=== PATIENT | male | born 1980 | race Hispanic/Latino ===

== ENCOUNTER 2018-04-20 15:28 | Outpatient (CLI) | payer OTHER ==
--- NOTE | 2018-04-21 10:35 | MRI ---
MRI OF THE LEFT WRIST WITHOUT CONTRAST: Date: 04/20/18 INDICATION: History of left wrist sprain after fall. COMPARISON: None. TECHNIQUE: Multiplanar, multisequence MR images were obtained of the left wrist without IV contrast. Motion taylor fact heavily limits image detail. FINDINGS: Visualized aspect of the scapholunate and lunotriquetral ligament appear intact. The TFC appears inta ct. The radial ulnar ligaments appear intact. The extrinsic ligaments are slightly difficult to evalu ate due to motion but appear grossly intact. Carpal alignment appears within normal limits. No defini te acute fracture is evident. Carpal tunnel and its contents appear within normal limits. The ulnar n eurovasculature appears within normal limits. IMPRESSION: 1. Limitations to exam due to motion artifact. 2. No definite acute abnormality seen. POS: [facility]
== END 2018-04-20 15:29 | disposition home or self-care (01) ==
LOC: TBSIIMAG 15:28
PROVIDERS: ATTEND Family Medicine
DX: S63.502D Unspecified sprain of left wrist, subsequent encounter (principal)

== ENCOUNTER 2021-02-15 13:11 | Inpatient (IN) | payer OTHER, SELFPAY ==
[2021-02-15] MEDS ORDERED: Dexamethasone 4 mg/ml Vial ONE (13:35)
[2021-02-15 13:39] LABS: #Basophils 0.1 thou/uL (0.0-0.2); #Eosinphils 0.2 thou/uL (0.0-0.7); #Monocytes 0.9 thou/uL (0.11-0.59); #Neutrophils 8.7 thou/uL (1.40-6.50); %Basophils 0.8 % (0.0-1.0); %Eosinophils 1.5 % (0.0-10.0); %Lymphocytes 9.3 % (21.0-51.0); %Monocytes 8.5 % (0.0-10.0); Hemoglobin 13.9 g/dL (14.0-18.0); Mean Corpuscular HGB CONC 32.4 g/dL (32.0-36.0); Mean Corpuscular Hemoglobin 30.4 pg (27.0-31.0); Mean Corpuscular Volume 93.8 fL (78.0-98.0); Mean Platelet Volume 8.8 fL (7.4-10.4); Platelet Count 356 thou/uL (130-400); RBC Distribution Width 13.1 % (11.5-14.5); Red Blood Cell (RBC) Count 4.57 mill/uL (4.70-6.10); White Blood Cell (WBC) Count 10.9 thou/uL (4.8-10.8)
[2021-02-15 13:59] LABS: ALT (SGPT) 97 U/L (8-55); AST (SGOT) 44 U/L (5-34); Albumin 3.7 g/dL (3.5-5.0); Alkaline Phosphatase 97 U/L (40-110); Anion Gap 15 mmol/L (10-20); BUN (Urea Nitrogen) 18 mg/dL (8.9-20.6); Bilirubin, Total 1.1 mg/dL (0.2-1.2); Calc. Creatinine Clearance 0 mL/min (70-130); Calcium 8.5 mg/dL (7.8-10.44); Carbon Dioxide 25 mmol/L (22-29); Chloride 93 mmol/L (98-107); Globulin 3.3 g/dL (2.4-3.5); Glucose 126 mg/dL (70-105); Potassium 4.6 mmol/L (3.5-5.1); Sodium 128 mmol/L (136-145)
[2021-02-15] MEDS ORDERED: Enoxaparin Sodium 40 MG/0.4 ML SYRINGE SC SCH (15:00)
[2021-02-15 15:36] LABS: SARS-CoV-2 NAA Rapid Test DETECTED (NotDetected)
[2021-02-15 20:17] VITALS: BMI 37.8
[2021-02-15] MEDS: Cholecalciferol 1,000 UNITS (25 MCG) TAB PO SCH (21:02)
[2021-02-15] MEDS: Thiamine 100 MG TAB PO SCH (21:02)
[2021-02-15] MEDS: Zinc Sulfate 220 MG CAP PO SCH (21:02)
[2021-02-15] MEDS: Ascorbic Acid 500 mg Chewable Tablet PO SCH (21:02)
[2021-02-15] MEDS: traMADol HCl 50 MG TAB PO SCH (21:03)
[2021-02-15] MEDS: Pregabalin 75 MG CAP PO SCH (21:03)
[2021-02-15] MEDS: Sodium Chloride 0.9% 1,000 ML IV SCH (21:04)
[2021-02-15] MEDS: Famotidine/PF 20 mg/2ml Vial SLOW IVP SCH (21:04)
[2021-02-15] MEDS: Famotidine 20 MG TAB PO SCH (21:04)
[2021-02-15] MEDS: Cyclobenzaprine 10 MG TAB PO SCH (21:04)
[2021-02-16] MEDS: Thiamine 100 MG TAB PO SCH (08:06)
[2021-02-16] MEDS: Famotidine 20 MG TAB PO SCH ×2 (08:06→20:11)
[2021-02-16] MEDS: Cholecalciferol 1,000 UNITS (25 MCG) TAB PO SCH (08:06)
[2021-02-16] MEDS: Cyclobenzaprine 10 MG TAB PO SCH ×3 (08:06→20:10)
[2021-02-16] MEDS: Zinc Sulfate 220 MG CAP PO SCH (08:06)
[2021-02-16] MEDS: Ascorbic Acid 500 mg Chewable Tablet PO SCH (08:06)
[2021-02-16] MEDS: Famotidine/PF 20 mg/2ml Vial SLOW IVP SCH (08:06)
[2021-02-16] MEDS: traMADol HCl 50 MG TAB PO SCH ×3 (08:07→20:10)
[2021-02-16] MEDS: Pregabalin 75 MG CAP PO SCH ×2 (08:07→20:09)
[2021-02-16] MEDS: Folic Acid 1 MG TAB PO SCH (08:07)
[2021-02-16] MEDS ORDERED: Enoxaparin Sodium 40 MG/0.4 ML SYRINGE SC SCH (09:00)
[2021-02-16 09:07] LABS: #Lymphocytes 1.1 thou/uL (1.20-3.40); #Monocytes 0.9 thou/uL (0.11-0.59); #Neutrophils 7.5 thou/uL (1.40-6.50); %Basophils 0.1 % (0.0-1.0); %Eosinophils 0.4 % (0.0-10.0); %Lymphocytes 11.5 % (21.0-51.0); %Monocytes 9.4 % (0.0-10.0); %Neutrophils 78.6 % (42.0-75.0); Hemoglobin 12.8 g/dL (14.0-18.0); Mean Corpuscular HGB CONC 32.6 g/dL (32.0-36.0); Mean Corpuscular Hemoglobin 30.8 pg (27.0-31.0); Mean Corpuscular Volume 94.4 fL (78.0-98.0); Mean Platelet Volume 9.4 fL (7.4-10.4); Platelet Count 365 thou/uL (130-400); RBC Distribution Width 13.2 % (11.5-14.5); Red Blood Cell (RBC) Count 4.17 mill/uL (4.70-6.10); White Blood Cell (WBC) Count 9.5 thou/uL (4.8-10.8)
[2021-02-16] MEDS ORDERED: Albuterol Sulfate 2.5 mg/3 ml Neb NEB PRN (09:17)
[2021-02-16 09:26] LABS: ALT (SGPT) 78 U/L (8-55); AST (SGOT) 32 U/L (5-34); Albumin 3.6 g/dL (3.5-5.0); Alkaline Phosphatase 88 U/L (40-110); Anion Gap 13 mmol/L (10-20); BUN (Urea Nitrogen) 19 mg/dL (8.9-20.6); Calc. Creatinine Clearance 242 mL/min (70-130); Calcium 9.1 mg/dL (7.8-10.44); Carbon Dioxide 26 mmol/L (22-29); Chloride 100 mmol/L (98-107); Globulin 3.4 g/dL (2.4-3.5); Glucose 103 mg/dL (70-105); Potassium 4.4 mmol/L (3.5-5.1); Sodium 135 mmol/L (136-145)
[2021-02-16] MEDS: Dexamethasone 10 MG in Sodium Chloride 0.9% 50 ML IVPB SCH (09:50)
[2021-02-16] MEDS: Benzonatate 100 MG CAP PO PRN ×2 (09:50→18:15)
[2021-02-16] MEDS: Sodium Chloride 0.9% 1,000 ML IV SCH ×2 (09:51→20:17)
[2021-02-16] MEDS: Acetaminophen 325 MG TAB PO PRN (10:10)
[2021-02-16] MEDS ORDERED: Iopamidol-370 76% 500 ML 1 ML ONE (10:53)
[2021-02-16] MEDS ORDERED: Ketorolac Tromethamine 30 MG/ML VIAL IVP SCH (14:30)
[2021-02-17] MEDS: Acetaminophen 325 MG TAB PO PRN ×2 (03:42→18:40)
[2021-02-17] MEDS: Benzonatate 100 MG CAP PO PRN ×2 (03:42→18:59)
[2021-02-17] MEDS ORDERED: Ketorolac Tromethamine 30 MG/ML VIAL IVP SCH (04:15)
[2021-02-17 07:52] LABS: #Basophils 0.1 thou/uL (0.0-0.2); #Lymphocytes 1.6 thou/uL (1.20-3.40); #Neutrophils 9.4 thou/uL (1.40-6.50); %Basophils 1.1 % (0.0-1.0); %Eosinophils 0.3 % (0.0-10.0); %Lymphocytes 12.9 % (21.0-51.0); %Monocytes 8.3 % (0.0-10.0); %Neutrophils 77.4 % (42.0-75.0); Hemoglobin 13.4 g/dL (14.0-18.0); Mean Corpuscular HGB CONC 34.9 g/dL (32.0-36.0); Mean Corpuscular Hemoglobin 32.6 pg (27.0-31.0); Mean Corpuscular Volume 93.3 fL (78.0-98.0); Mean Platelet Volume 8.8 fL (7.4-10.4); Platelet Count 361 thou/uL (130-400); Red Blood Cell (RBC) Count 4.12 mill/uL (4.70-6.10); White Blood Cell (WBC) Count 12.2 thou/uL (4.8-10.8)
[2021-02-17 08:13] LABS: ALT (SGPT) 76 U/L (8-55); AST (SGOT) 33 U/L (5-34); Albumin 3.3 g/dL (3.5-5.0); Alkaline Phosphatase 94 U/L (40-110); Anion Gap 12 mmol/L (10-20); BUN (Urea Nitrogen) 18 mg/dL (8.9-20.6); Bilirubin, Total 1.1 mg/dL (0.2-1.2); Calc. Creatinine Clearance 229 mL/min (70-130); Calcium 8.7 mg/dL (7.8-10.44); Carbon Dioxide 26 mmol/L (22-29); Chloride 99 mmol/L (98-107); Globulin 3.4 g/dL (2.4-3.5); Glucose 92 mg/dL (70-105); Potassium 4.4 mmol/L (3.5-5.1); Protein, Total 6.7 g/dL (6.0-8.3); Sodium 133 mmol/L (136-145)
[2021-02-17] MEDS: Famotidine 20 MG TAB PO SCH ×2 (08:24→21:28)
[2021-02-17] MEDS: Cholecalciferol 1,000 UNITS (25 MCG) TAB PO SCH (08:24)
[2021-02-17] MEDS: Folic Acid 1 MG TAB PO SCH (08:24)
[2021-02-17] MEDS: Zinc Sulfate 220 MG CAP PO SCH (08:24)
[2021-02-17] MEDS: Cyclobenzaprine 10 MG TAB PO SCH ×3 (08:24→21:27)
[2021-02-17] MEDS: traMADol HCl 50 MG TAB PO SCH ×3 (08:25→21:28)
[2021-02-17] MEDS: Thiamine 100 MG TAB PO SCH (08:25)
[2021-02-17] MEDS: Pregabalin 75 MG CAP PO SCH ×2 (08:25→21:28)
[2021-02-17] MEDS: Ascorbic Acid 500 mg Chewable Tablet PO SCH (08:26)
[2021-02-17] MEDS: Enoxaparin Sodium 40 MG/0.4 ML SYRINGE SC SCH ×2 (08:26→21:27)
[2021-02-17] MEDS: Dexamethasone 10 MG in Sodium Chloride 0.9% 50 ML IVPB SCH (08:28)
[2021-02-17] MEDS ORDERED: Metoclopramide HCl 10 MG/2 ML VIAL IVP SCH (09:30)
[2021-02-17] MEDS ORDERED: diphenhydrAMINE 50 MG/ML VIAL IVP SCH (09:30)
[2021-02-17] MEDS ORDERED: Sodium Chloride 0.9% 500 ML IV SCH ×3 (09:30→16:30)
[2021-02-17] MEDS ORDERED: Ketorolac Tromethamine 30 MG/ML VIAL IVP PRN (10:00)
[2021-02-17] MEDS: Sodium Chloride 0.9% 1,000 ML IV SCH ×2 (14:56→21:29)
[2021-02-18] MEDS: Benzonatate 100 MG CAP PO PRN ×2 (01:13→20:26)
[2021-02-18] MEDS: Melatonin 3 MG TAB PO PRN ×2 (01:13→20:26)
[2021-02-18] MEDS: Acetaminophen 325 MG TAB PO PRN (01:14)
[2021-02-18 06:26] LABS: ALT (SGPT) 64 U/L (8-55); AST (SGOT) 25 U/L (5-34); Albumin 3.2 g/dL (3.5-5.0); Alkaline Phosphatase 87 U/L (40-110); Anion Gap 9 mmol/L (10-20); BUN (Urea Nitrogen) 14 mg/dL (8.9-20.6); Bilirubin, Total 0.6 mg/dL (0.2-1.2); Calc. Creatinine Clearance 232 mL/min (70-130); Calcium 8.9 mg/dL (7.8-10.44); Carbon Dioxide 25 mmol/L (22-29); Chloride 104 mmol/L (98-107); Globulin 3.3 g/dL (2.4-3.5); Glucose 100 mg/dL (70-105); Potassium 4.4 mmol/L (3.5-5.1); Protein, Total 6.5 g/dL (6.0-8.3); Sodium 134 mmol/L (136-145)
[2021-02-18 06:30] LABS: Mean Corpuscular HGB CONC 32.5 g/dL (32.0-36.0); Mean Corpuscular Hemoglobin 30.7 pg (27.0-31.0); Mean Corpuscular Volume 94.2 fL (78.0-98.0); Mean Platelet Volume 8.9 fL (7.4-10.4); Platelet Count 350 thou/uL (130-400); Red Blood Cell (RBC) Count 3.92 mill/uL (4.70-6.10); White Blood Cell (WBC) Count 11.6 thou/uL (4.8-10.8)
[2021-02-18 08:10] LABS: Band 13 % (5-11); Lymphocytes 8 % (21-51); MDiff Complete? YES; Metamyelocyte 6 % (0-0); Monocytes 15 % (0-10); Myelocyte 2 % (0-0); Neutrophil 56 % (42-75); Platelet Morphology Comment Appears Adequate; Polychromasia SLIGHT = 2-3 cells (100X) (0-2/hpf)
[2021-02-18] MEDS: Cyclobenzaprine 10 MG TAB PO SCH ×3 (08:49→20:27)
[2021-02-18] MEDS: Pregabalin 75 MG CAP PO SCH ×2 (08:50→20:26)
[2021-02-18] MEDS: traMADol HCl 50 MG TAB PO SCH ×3 (08:50→20:27)
[2021-02-18] MEDS: Thiamine 100 MG TAB PO SCH (08:51)
[2021-02-18] MEDS: Enoxaparin Sodium 40 MG/0.4 ML SYRINGE SC SCH ×2 (08:51→20:28)
[2021-02-18] MEDS: Ascorbic Acid 500 mg Chewable Tablet PO SCH (08:51)
[2021-02-18] MEDS: Dexamethasone 4 mg/ml Vial SLOW IVP SCH (08:51)
[2021-02-18] MEDS: Cholecalciferol 1,000 UNITS (25 MCG) TAB PO SCH (08:51)
[2021-02-18] MEDS: Folic Acid 1 MG TAB PO SCH (08:51)
[2021-02-18] MEDS: Famotidine 20 MG TAB PO SCH ×2 (08:51→20:27)
[2021-02-18] MEDS: Zinc Sulfate 220 MG CAP PO SCH (08:51)
[2021-02-18] MEDS ORDERED: Calcium Carbonate 500 MG ChewTAB PO PRN (15:26)
[2021-02-18] MEDS: Sodium Chloride 0.9% 1,000 ML IV SCH (17:12)
[2021-02-19] MEDS: Sodium Chloride 0.9% 1,000 ML IV SCH (06:31)
[2021-02-19] MEDS: Cholecalciferol 1,000 UNITS (25 MCG) TAB PO SCH (07:48)
[2021-02-19] MEDS: Cyclobenzaprine 10 MG TAB PO SCH ×3 (07:48→20:10)
[2021-02-19] MEDS: Zinc Sulfate 220 MG CAP PO SCH (07:48)
[2021-02-19] MEDS: Benzonatate 100 MG CAP PO PRN ×3 (07:49→17:26)
[2021-02-19] MEDS: traMADol HCl 50 MG TAB PO SCH ×3 (07:49→20:10)
[2021-02-19] MEDS: Folic Acid 1 MG TAB PO SCH (07:49)
[2021-02-19] MEDS: Ascorbic Acid 500 mg Chewable Tablet PO SCH (07:49)
[2021-02-19] MEDS: Famotidine 20 MG TAB PO SCH ×2 (07:49→20:11)
[2021-02-19] MEDS: Pregabalin 75 MG CAP PO SCH ×2 (07:49→20:10)
[2021-02-19] MEDS: Dexamethasone 4 mg/ml Vial SLOW IVP SCH (07:50)
[2021-02-19] MEDS: Thiamine 100 MG TAB PO SCH (07:50)
[2021-02-19] MEDS: Enoxaparin Sodium 40 MG/0.4 ML SYRINGE SC SCH ×2 (07:51→20:11)
[2021-02-19] MEDS: Melatonin 3 MG TAB PO PRN (20:11)
[2021-02-20] MEDS: Cholecalciferol 1,000 UNITS (25 MCG) TAB PO SCH (09:58)
[2021-02-20] MEDS: Cyclobenzaprine 10 MG TAB PO SCH ×3 (09:58→20:30)
[2021-02-20] MEDS: Zinc Sulfate 220 MG CAP PO SCH (09:59)
[2021-02-20] MEDS: Ascorbic Acid 500 mg Chewable Tablet PO SCH (09:59)
[2021-02-20] MEDS: Famotidine 20 MG TAB PO SCH ×2 (09:59→20:31)
[2021-02-20] MEDS: Pregabalin 75 MG CAP PO SCH ×2 (09:59→20:30)
[2021-02-20] MEDS: Folic Acid 1 MG TAB PO SCH (09:59)
[2021-02-20] MEDS: Enoxaparin Sodium 40 MG/0.4 ML SYRINGE SC SCH ×2 (10:00→20:31)
[2021-02-20] MEDS: Thiamine 100 MG TAB PO SCH (10:00)
[2021-02-20] MEDS: Dexamethasone 4 mg/ml Vial SLOW IVP SCH (10:00)
[2021-02-20] MEDS: Benzonatate 100 MG CAP PO PRN ×3 (10:00→20:31)
[2021-02-20] MEDS: traMADol HCl 50 MG TAB PO SCH ×3 (10:01→20:31)
[2021-02-20] MEDS: Melatonin 3 MG TAB PO PRN (20:31)
[2021-02-21 06:05] LABS: #Basophils 0.1 thou/uL (0.0-0.2); #Lymphocytes 1.5 thou/uL (1.20-3.40); #Monocytes 1.3 thou/uL (0.11-0.59); %Basophils 0.6 % (0.0-1.0); %Eosinophils 0.4 % (0.0-10.0); %Lymphocytes 12.4 % (21.0-51.0); %Monocytes 11.2 % (0.0-10.0); %Neutrophils 75.5 % (42.0-75.0); Hemoglobin 12.4 g/dL (14.0-18.0); Mean Corpuscular HGB CONC 33.5 g/dL (32.0-36.0); Mean Corpuscular Hemoglobin 31.3 pg (27.0-31.0); Mean Corpuscular Volume 93.5 fL (78.0-98.0); Mean Platelet Volume 8.8 fL (7.4-10.4); Platelet Count 441 thou/uL (130-400); RBC Distribution Width 12.8 % (11.5-14.5); Red Blood Cell (RBC) Count 3.98 mill/uL (4.70-6.10); White Blood Cell (WBC) Count 11.9 thou/uL (4.8-10.8)
[2021-02-21 06:35] LABS: Anion Gap 9 mmol/L (10-20); BUN (Urea Nitrogen) 19 mg/dL (8.9-20.6); CRP (Inflammatory) 3.27 mg/dL (= or < 0.5); Calc. Creatinine Clearance 235 mL/min (70-130); Calcium 9.2 mg/dL (7.8-10.44); Carbon Dioxide 28 mmol/L (22-29); Chloride 101 mmol/L (98-107); Glucose 103 mg/dL (70-105); Potassium 4.2 mmol/L (3.5-5.1); Sodium 134 mmol/L (136-145)
[2021-02-21] MEDS: Cholecalciferol 1,000 UNITS (25 MCG) TAB PO SCH (09:45)
[2021-02-21] MEDS: Thiamine 100 MG TAB PO SCH (09:45)
[2021-02-21] MEDS: Benzonatate 100 MG CAP PO PRN ×3 (09:45→20:45)
[2021-02-21] MEDS: Zinc Sulfate 220 MG CAP PO SCH (09:45)
[2021-02-21] MEDS: Folic Acid 1 MG TAB PO SCH (09:45)
[2021-02-21] MEDS: Cyclobenzaprine 10 MG TAB PO SCH ×3 (09:45→20:44)
[2021-02-21] MEDS: Pregabalin 75 MG CAP PO SCH ×2 (09:45→20:44)
[2021-02-21] MEDS: Dexamethasone 4 mg/ml Vial SLOW IVP SCH ×2 (09:46→20:46)
[2021-02-21] MEDS: Famotidine 20 MG TAB PO SCH ×2 (09:46→20:45)
[2021-02-21] MEDS: Colchicine 0.6 MG TAB PO SCH ×2 (09:46→20:45)
[2021-02-21] MEDS: Ascorbic Acid 500 mg Chewable Tablet PO SCH (09:46)
[2021-02-21] MEDS: Enoxaparin Sodium 40 MG/0.4 ML SYRINGE SC SCH ×2 (09:47→20:46)
[2021-02-21] MEDS: traMADol HCl 50 MG TAB PO SCH ×3 (09:47→20:45)
[2021-02-21] MEDS ORDERED: Sodium Chloride 0.65% Nasal 44 ML BOT EA NARE PRN (12:47)
[2021-02-21] MEDS: Melatonin 3 MG TAB PO PRN (20:46)
[2021-02-22 06:12] LABS: #Lymphocytes 1.3 thou/uL (1.20-3.40); #Monocytes 0.7 thou/uL (0.11-0.59); %Basophils 0.2 % (0.0-1.0); %Eosinophils 0.3 % (0.0-10.0); %Lymphocytes 9.5 % (21.0-51.0); %Monocytes 4.7 % (0.0-10.0); %Neutrophils 85.3 % (42.0-75.0); Hemoglobin 12.6 g/dL (14.0-18.0); Mean Corpuscular HGB CONC 33.9 g/dL (32.0-36.0); Mean Corpuscular Hemoglobin 31.5 pg (27.0-31.0); Mean Corpuscular Volume 92.9 fL (78.0-98.0); Mean Platelet Volume 8.9 fL (7.4-10.4); Platelet Count 450 thou/uL (130-400); RBC Distribution Width 12.9 % (11.5-14.5)
[2021-02-22 06:37] LABS: Anion Gap 11 mmol/L (10-20); BUN (Urea Nitrogen) 17 mg/dL (8.9-20.6); CRP (Inflammatory) 1.37 mg/dL (= or < 0.5); Calc. Creatinine Clearance 256 mL/min (70-130); Calcium 9.2 mg/dL (7.8-10.44); Carbon Dioxide 26 mmol/L (22-29); Chloride 100 mmol/L (98-107); Glucose 130 mg/dL (70-105); Potassium 4.3 mmol/L (3.5-5.1); Sodium 133 mmol/L (136-145)
[2021-02-22] MEDS: Dexamethasone 4 mg/ml Vial SLOW IVP SCH ×2 (09:45→20:52)
[2021-02-22] MEDS: Benzonatate 100 MG CAP PO PRN ×2 (09:45→20:52)
[2021-02-22] MEDS: Cholecalciferol 1,000 UNITS (25 MCG) TAB PO SCH (09:46)
[2021-02-22] MEDS: Pregabalin 75 MG CAP PO SCH ×2 (09:46→20:53)
[2021-02-22] MEDS: Ascorbic Acid 500 mg Chewable Tablet PO SCH (09:46)
[2021-02-22] MEDS: Zinc Sulfate 220 MG CAP PO SCH (09:46)
[2021-02-22] MEDS: Famotidine 20 MG TAB PO SCH ×2 (09:46→20:53)
[2021-02-22] MEDS: Folic Acid 1 MG TAB PO SCH (09:46)
[2021-02-22] MEDS: Thiamine 100 MG TAB PO SCH (09:46)
[2021-02-22] MEDS: traMADol HCl 50 MG TAB PO SCH ×3 (09:47→20:54)
[2021-02-22] MEDS: Cyclobenzaprine 10 MG TAB PO SCH ×3 (09:47→20:52)
[2021-02-22] MEDS: Colchicine 0.6 MG TAB PO SCH ×2 (09:47→20:52)
[2021-02-22] MEDS: Enoxaparin Sodium 40 MG/0.4 ML SYRINGE SC SCH ×2 (09:48→20:51)
[2021-02-22] MEDS ORDERED: ALPRAZolam 0.5 MG TAB PO PRN (17:14)
[2021-02-22 17:42] LABS: Hemoglobin 13.4 g/dL (14.0-18.0)
[2021-02-22] MEDS ORDERED: DULoxetine 60 MG CAP PO SCH (18:30)
[2021-02-22] MEDS: Melatonin 3 MG TAB PO PRN (20:55)
[2021-02-23 05:41] LABS: #Lymphocytes 1.3 thou/uL (1.20-3.40); #Monocytes 1.3 thou/uL (0.11-0.59); #Neutrophils 13.3 thou/uL (1.40-6.50); %Basophils 0.2 % (0.0-1.0); %Eosinophils 0.1 % (0.0-10.0); %Lymphocytes 8.3 % (21.0-51.0); %Monocytes 7.9 % (0.0-10.0); %Neutrophils 83.5 % (42.0-75.0); Hemoglobin 12.7 g/dL (14.0-18.0); Mean Corpuscular HGB CONC 32.8 g/dL (32.0-36.0); Mean Corpuscular Hemoglobin 30.5 pg (27.0-31.0); Mean Corpuscular Volume 92.9 fL (78.0-98.0); Mean Platelet Volume 8.9 fL (7.4-10.4); Platelet Count 437 thou/uL (130-400); Red Blood Cell (RBC) Count 4.18 mill/uL (4.70-6.10)
[2021-02-23 06:08] LABS: Anion Gap 13 mmol/L (10-20); BUN (Urea Nitrogen) 20 mg/dL (8.9-20.6); CRP (Inflammatory) 0.62 mg/dL (= or < 0.5); Calc. Creatinine Clearance 272 mL/min (70-130); Calcium 9.2 mg/dL (7.8-10.44); Carbon Dioxide 24 mmol/L (22-29); Chloride 99 mmol/L (98-107); Glucose 118 mg/dL (70-105); Potassium 4.4 mmol/L (3.5-5.1); Sodium 132 mmol/L (136-145)
[2021-02-23] MEDS ORDERED: DULoxetine 60 MG CAP PO SCH (09:00)
[2021-02-23] MEDS: Zinc Sulfate 220 MG CAP PO SCH (10:00)
[2021-02-23] MEDS: Ascorbic Acid 500 mg Chewable Tablet PO SCH (10:00)
[2021-02-23] MEDS: Colchicine 0.6 MG TAB PO SCH (10:00)
[2021-02-23] MEDS: Thiamine 100 MG TAB PO SCH (10:00)
[2021-02-23] MEDS: Cyclobenzaprine 10 MG TAB PO SCH (10:01)
[2021-02-23] MEDS: Benzonatate 100 MG CAP PO PRN (10:01)
[2021-02-23] MEDS: Pregabalin 75 MG CAP PO SCH (10:01)
[2021-02-23] MEDS: Folic Acid 1 MG TAB PO SCH (10:01)
[2021-02-23] MEDS: Dexamethasone 4 mg/ml Vial SLOW IVP SCH (10:01)
[2021-02-23] MEDS: Famotidine 20 MG TAB PO SCH (10:01)
[2021-02-23] MEDS: Cholecalciferol 1,000 UNITS (25 MCG) TAB PO SCH (10:01)
[2021-02-23] MEDS: traMADol HCl 50 MG TAB PO SCH (10:05)
[2021-02-23] MEDS: Enoxaparin Sodium 40 MG/0.4 ML SYRINGE SC SCH (10:05)
[2021-02-23 14:52] VITALS: BP 119/73; TEMP 97.9
== END 2021-02-23 13:57 | disposition home or self-care (01) | DRG 177 ==
LOC: ERS 13:11 → T4-B 14:34
PROVIDERS: ADMIT Internal Medicine; ATTEND Family Medicine
PROC: 8E0ZXY6 Isolation (ICD-10-PCS; principal; 2021-02-15)
DX: U07.1 COVID-19 (principal); J12.82 Pneumonia due to coronavirus disease 2019; J96.01 Acute respiratory failure with hypoxia; L40.50 Arthropathic psoriasis, unspecified; E66.9 Obesity, unspecified; Z68.37 Body mass index [BMI] 37.0-37.9, adult; Z79.82 Long term (current) use of aspirin; Z79.51 Long term (current) use of inhaled steroids; Z88.2 Allergy status to sulfonamides; Z79.899 Other long term (current) drug therapy; Z79.01 Long term (current) use of anticoagulants; Z88.8 Allergy status to other drugs, medicaments and biological substances
CPT/HCPCS: 0240U; 36415; 36416; 71045; 71275; 80048; 80053; 83605; 85025; 85379; 86140; 93005; 96374; J1100; J1200; J1650; J1885; J2765; Q9967